=== PATIENT | male | born 1990 | race Caucasian/White ===

== ENCOUNTER 2023-06-19 02:40 | Emergency (ER) | payer MEDICAID ==
[~2023-06-19] VITALS: Ht 170.2 cm; Wt 77.1 kg
[2023-06-19 02:46] VITALS: BP 149/58; PULSE 107; RESP 16; TEMP 97.7; O2SAT 99
[2023-06-19 03:10] VITALS: BP 149/58; PULSE 107; RESP 16; TEMP 97.7; O2SAT 99
== END 2023-06-19 03:10 ==
LOC: MED 02:40
DX: Z02.89 Encounter for other administrative examinations (principal); E11.9 Type 2 diabetes mellitus without complications
CPT/HCPCS: 99283